=== PATIENT | female | born 1955 | race Two or more races ===

== ENCOUNTER 2023-05-22 16:52 | Emergency (ER) | payer MEDICARE, OTHER ==
[~2023-05-22] VITALS: Ht 154.9 cm; Wt 68.9 kg
[2023-05-22 17:06] VITALS: TEMP 98.4
[2023-05-22] MEDS ORDERED: METOPROLOL TARTRATE INJ 5 MG/5 ML AMPUL IV ONE (17:30)
[2023-05-22] MEDS ORDERED: METOPROLOL SUCCINATE 50 MG TAB.SR.24H PO SCH (17:30)
[2023-05-22] MEDS ORDERED: METOPROLOL TARTRATE INJ 5 MG/5 ML AMPUL ONE (17:54)
[2023-05-22] MEDS ORDERED: METOPROLOL SUCCINATE 25 MG TAB.SR.24H ONE (18:08)
[2023-05-22 18:10] LABS: BASOPHILS % (AUTO) 0.8 % (0.0-2.0); EOSINOPHILS # (AUTO) 0.3 K/uL (0.0-0.7); EOSINOPHILS % (AUTO) 6.2 % (0.0-6.0); HEMATOCRIT 39 % (33-45); HEMOGLOBIN 12.1 g/dL (11.5-14.8); LYMPHOCYTES # (AUTO) 0.7 K/uL (0.8-4.8); LYMPHOCYTES % (AUTO) 12.5 % (20.0-44.0); MEAN CORPUSCULAR HEMOGLOBIN 28 PG (26.0-33.0); MEAN CORPUSCULAR HGB CONC 31 g/dl (31.0-36.0); MEAN CORPUSCULAR VOLUME 88 fL (82-100); MONOCYTES # (AUTO) 0.4 K/uL (0.1-1.30); MONOCYTES % (AUTO) 7.8 % (2.0-12.0); NEUTROPHILS # (AUTO) 4.1 K/uL (1.8-8.9); NEUTROPHILS % (AUTO) 72.7 % (43.0-81.0); PLATELET COUNT (AUTO) 226 K/uL (150-450); RED BLOOD CELL COUNT(AUTO) 4.41 MIL/uL (4.0-5.2); RED CELL DISTRIBUTION WIDTH 18.5 % (11.5-15.0); WHITE BLOOD COUNT (AUTO) 5.6 K/uL (4.3-11.0)
[2023-05-22 18:22] LABS: INR 1.35 (0.91-1.10); PARTIAL THROMBOPLASTIN TIME 32.6 SEC (24.3-34.3); PROTHROMBIN TIME 13.9 SECS (9.2-11.1)
[2023-05-22 18:36] LABS: CALCIUM, SERUM 9.2 mg/dL (8.5-10.1); CARBON DIOXIDE 22 mmol/L (21-32); CHLORIDE 107 mmol/L (98-107); GLUCOSE 109 mg/dL (74-106); POTASSIUM 3.6 mmol/L (3.5-5.1); SODIUM SERUM 139 mmol/L (136-145); UREA NITROGEN, BLOOD 32 mg/dL (7-18)
[2023-05-22 18:51] LABS: ALANINE AMINOTRANSFERASE 15 U/L (12-78); ALBUMIN 3.4 g/dL (3.4-5.0); ALKALINE PHOSPHATASE 166 U/L (46-116); ASPARTATE AMINOTRANSFERASE 27 U/L (15-37); BILIRUBIN,DIRECT 0.3 mg/dL (0.0-0.2); BILIRUBIN,TOTAL 1.5 mg/dL (0.2-1.0); NT-PRO BNP 4279 pg/mL (0-125); TOTAL PROTEIN, SERUM 7.8 g/dL (6.4-8.2)
[2023-05-22] MEDS ORDERED: ATOR40TA PO (19:23)
[2023-05-22] MEDS ORDERED: APIX5TAB PO (19:23)
[2023-05-22] MEDS ORDERED: DILT-4 PO (19:23)
[2023-05-22] MEDS ORDERED: ASPI-1169 PO (19:23)
[2023-05-22] MEDS ORDERED: METO-358 PO (19:23)
[2023-05-22] MEDS ORDERED: FAMO20TA8 PO (19:23)
[2023-05-22] MEDS ORDERED: ALBU2.5V38 IH (19:23)
[2023-05-22] MEDS ORDERED: DOCU100C36 PO (19:23)
[2023-05-22] MEDS ORDERED: MAGN400O6 PO (19:23)
[2023-05-22] MEDS ORDERED: SENN-261 PO (19:23)
[2023-05-22] MEDS ORDERED: FUROSEMIDE 40 MG/4 ML VIAL IV ONE (19:30)
[2023-05-22] MEDS ORDERED: FUROSEMIDE 40 MG/4 ML VIAL ONE (20:17)
[2023-05-23 02:48] VITALS: BP 123/98; O2SAT 95
== END 2023-05-23 04:24 | disposition short-term general hospital (02) ==
LOC: ER 17:12
DX: I48.20 Chronic atrial fibrillation, unspecified (principal); I11.0 Hypertensive heart disease with heart failure; I50.9 Heart failure, unspecified; M79.89 Other specified soft tissue disorders; Z20.822 Contact with and (suspected) exposure to COVID-19
CPT/HCPCS: 99291; 93970; 96374; 96375; 87426; 99292; 93005; 71045; 85025; 80048; 80076; 36415; 84484; 85730; 83880; J1940; J3490; C9803